=== PATIENT | female | born 1950 | race Caucasian/White ===

== ENCOUNTER 2019-10-23 00:08 | Emergency (ER) | payer OTHER, MEDICARE ==
--- NOTE | 2019-10-23 00:12 | PDOC ---
History of Present Illness - General Chief Complaint: Nasal Bleeding Stated Complaint: NOSEBLEED Time Seen by Provider: 10/23/19 00:11 - History of Present Illness Initial Comments: This 68-year-old woman with a history of HLD presents with epistaxis for the last hour. Patient states that she was getting ready to go to sleep at approximately 10:30 PM when she had sudden onset of bleeding from her right nostril. She denies trauma or nose picking. She states that she had right- sided epistaxis that resolved after approximately 15 minutes 4 days ago. Prior to that, she had never experienced a nosebleed. Tonight, despite direct pressure to her nostrils and elevation of her head, she continued to have bleeding so she proceeded to the emergency room. No recent illness except for one episode of watery diarrhea earlier today; she states that she also noted some light bleeding today from an internal hemorrhoid (which intermittently bleeds). She denies any other easy bruising or prolonged bleeding. She had dental cleaning earlier this week and did not notice any prolonged bleeding from her gums. Medications as noted below No known allergies Non-smoker; no daily alcohol or recreational drugs Past History - Past Medical History Allergies/Adverse Reactions: Allergies Allergy/AdvReac Type Severity Reaction Status Date / Time No Known Allergies Allergy Unverified 10/23/19 00:09 Home Medications: Ambulatory Orders Simvastatin 20 mg PO HS 10/23/19 Review of Systems - Review of Systems Able to Perform ROS?: Yes Comments:: 12 point review of systems is negative except for what is noted in the history of present illness *Physical Exam - Physical Exam GENERAL: Adult female, alert and oriented x3, in no acute distress HEAD: Normal with no signs of trauma. EYES: PERRLA, EOMI, sclera anicteric, conjunctiva clear. ENT: nares dried blood bilaterally, small amount of bleeding from the right nostril without clear evidence of origin of bleeding Mucous membranes well hydrated; small amount of clot seen in the oropharynx; no masses or edema EXTREMITIES: Normal range of motion, no edema. No clubbing or cyanosis. No erythema, or tenderness. NEUROLOGICAL: Cranial nerves II through XII grossly intact. Normal speech. No focal neurological deficits. SKIN: Warm, Dry, normal turgor, no rashes or lesions noted. Medical Decision Making - Medical Decision Making As noted above this 68-year-old woman presents with 1 hour history of right sided epistaxis. No history of trauma noted. Although the patient has questionable past history of sinusitis, no clear symptoms suggestive of acute infection at this time. Although she has noted small amount of bleeding from internal hemorrhoid today after earlier diarrhea, no other abnormal bruising/bleeding noted by the patient. Exam as noted above. 4.5 cm rapid Rhino nasal tampon inserted into the right nostril without difficulty; balloon inflated with approximately 4 mL of air. No further bleeding noted in either nostril. Patient tolerated this well and apparatus was attached to patient's right cheek with surgical tape. Patient was observed and repeat BP taken: 163/82 She continued to be comfortable without any further epistaxis and she was discharged with instructions to keep her head elevated as much as possible, tampon in place and to plan on following up with her ENT doctor within the next 2 to 3 days. If she has any recurrent bleeding, she should return to the ER immediately. She should also plan on following up with her PMD, Dr. Christy within the next 3 to 4 days Discharge - Discharge Information Problems reviewed: Yes Clinical Impression/Diagnosis: Epistaxis Condition: Stable Disposition: HOME - Follow up/Referral Referrals: Kel Christy MD [Primary Care Provider] - - Patient Discharge Instructions Patient Printed Discharge Instructions: Nosebleed Additional Instructions: keep packing in place with head elevated as much as possible Do not blow your nose Return to ER if you have persistent bleeding from your nose or experience pain/fever Follow-up with your ENT surgeon within 2 to 3 days Follow-up with Dr Christy within the next 3 to 4 days - Post Discharge Activity
[2019-10-23 00:24] VITALS: PULSE 77; TEMP 98.3; BMI 24.7
[2019-10-23] MEDS ORDERED: LOPERAMIDE HCL 2 MG CAPSULE PO ONE (00:59)
[2019-10-23] MEDS ORDERED: LOPERAMIDE HCL 2 MG CAPSULE ONE (01:00)
[2019-10-23 01:11] VITALS: BP 163/82
== END 2019-10-23 01:15 | disposition home or self-care (01) ==
LOC: FER 00:08
PROC: 2Y41X5Z Packing of Nasal Region using Packing Material (ICD-10-PCS; principal; 2019-10-23)
DX: R04.0 Epistaxis (principal)
CPT/HCPCS: 99283-25

== ENCOUNTER 2021-01-16 05:23 | Day surgery (SDC) | payer OTHER, MEDICARE ==
[2021-01-16 08:57] VITALS: BMI 25.6
[2021-01-16 10:24] VITALS: TEMP 97.7
[2021-01-16 11:32] VITALS: BP 128/69; PULSE 14
== END 2021-01-16 11:27 | disposition home or self-care (01) ==
LOC: JASU-ENDO 05:23
PROVIDERS: ATTEND Internal Medicine Gastroenterology
PROC: 0DJD8ZZ Inspection of Lower Intestinal Tract, Via Natural or Artificial Opening Endoscopic (ICD-10-PCS; principal; 2021-01-16 09:45)
DX: Z12.11 Encounter for screening for malignant neoplasm of colon (principal); K92.1 Melena; K64.4 Residual hemorrhoidal skin tags; K64.9 Unspecified hemorrhoids; K57.30 Diverticulosis of large intestine without perforation or abscess without bleeding

== ENCOUNTER 2022-09-07 05:44 | Emergency (ER) | payer OTHER, MEDICARE ==
[2022-09-07 05:53] VITALS: BP 142/78; PULSE 78; RESP 18; TEMP 99.6; BMI 25.7
[2022-09-07] MEDS ORDERED: CEPHALEXIN MONOHYDRATE 500 MG CAPSULE (UD) PO ONE (06:06)
[2022-09-07] MEDS ORDERED: METHOCARBAMOL 500 MG TABLET PO ONE (06:06)
[2022-09-07] MEDS ORDERED: CEPHALEXIN MONOHYDRATE 500 MG CAPSULE (UD) ONE (06:10)
[2022-09-07] MEDS ORDERED: METHOCARBAMOL 500 MG TABLET ONE (06:10)
== END 2022-09-07 06:33 | disposition home or self-care (01) ==
LOC: SUPCPDRO 05:44 → FER 05:44
DX: M79.651 Pain in right thigh (principal); M79.652 Pain in left thigh; E86.0 Dehydration
CPT/HCPCS: 99283-25